=== PATIENT | male | born 1990 | race African-American/Black ===

== ENCOUNTER 2022-11-12 18:08 | Emergency (ER) | payer OTHER ==
[~2022-11-12] VITALS: Ht 170.2 cm; Wt 131.1 kg
[2022-11-12] MEDS ORDERED: LEVETIRACETAM500 MG PO (18:29)
[2022-11-12] MEDS ORDERED: LEVETIRACETAM 500MG/5ML VIAL 1,000 MG in SODIUM CHLORIDE 0.9% 100 ML IV ONE (18:45)
[2022-11-12] MEDS ORDERED: SODIUM CHLORIDE 0.9% 250ML 250 ML ONE (18:51)
[2022-11-12] MEDS ORDERED: LEVETIRACETAM 500 MG/5 ML VIAL IV ONE ×2 (18:51→18:57)
[2022-11-12] MEDS ORDERED: PIPERACILLIN/TAZOBACTAM 3.375 GM VIAL ONE (19:02)
[2022-11-12 19:09] LABS: BASOPHILS % 0.2 % (0.0-1.0); HEMATOCRIT 40.3 % (38.2-49.6); HEMOGLOBIN 13.7 g/dL (14.0-18.0); LYMPHOCYTES # (AUTO) 1.8 (1.0-3.2); LYMPHOCYTES % 6.7 % (18.0-39.1); MEAN CORPUSCULAR HEMOGLOBIN 29.1 pg (28-32); MEAN CORPUSCULAR VOLUME 85.6 fL (81-99); MONOCYTES # (AUTO) 1.1 (0.2-0.8); NEUTROPHILS # (AUTO) 23.1 (2.1-6.9); NEUTROPHILS % 88.4 % (38.7-80.0); PLATELET COUNT 214 x10e3/uL (140-360); RED BLOOD COUNT 4.71 x10e6/uL (4.3-5.7); RED CELL DISTRIBUTION WIDTH 13.9 % (11.7-14.4)
[2022-11-12 19:24] LABS: ALBUMIN 4.1 g/dL (3.5-5.0); ALBUMIN/GLOBULIN RATIO 1.3 (0.8-2.0); ANION GAP 17.2 mmol/L (8-16); CALCIUM 9.7 mg/dL (8.4-10.2); CREATININE, SERUM 1.04 mg/dL (0.72-1.25); POTASSIUM 4.2 mmol/L (3.5-5.1)
[2022-11-12] MEDS ORDERED: IOPAMIDOL 370 MG/ML 100 ML INFUS..BTL INJ ONE (19:47)
[2022-11-12 21:30] VITALS: O2SAT 94
[2022-11-12] MEDS ORDERED: AZITHROMYCIN250 MG PO (21:55)
[2022-11-12] MEDS ORDERED: KEPPRA500 MG PO (21:55)
== END 2022-11-12 22:46 | disposition home or self-care (01) ==
LOC: FSED 18:14
DX: R09.02 Hypoxemia (principal); A41.9 Sepsis, unspecified organism; J18.9 Pneumonia, unspecified organism; R00.0 Tachycardia, unspecified; G40.909 Epilepsy, unspecified, not intractable, without status epilepticus; Z20.822 Contact with and (suspected) exposure to COVID-19; E66.9 Obesity, unspecified; M54.9 Dorsalgia, unspecified; G89.29 Other chronic pain
CPT/HCPCS: 36415; 70450; 71250; 71260; 80053; 81003; 82550; 83605; 83880; 84484; 85025; 85379; 87040; 99284; J1953; J2543; J7050; Q9967; U0002

== ENCOUNTER 2023-09-08 19:08 | Inpatient (IN) | payer OTHER ==
[~2023-09-08] VITALS: Ht 170.2 cm; Wt 131.1 kg
[~2023-09-08 19:08] MED LIST: AZITHROMYCIN250 MG PO; DIAZEPAM INJ 5 MG/ML 2 ML ONE; KEPPRA500 MG PO; LEVETIRACETAM 500 MG/5 ML VIAL IV ONE; LEVETIRACETAM500 MG PO; PIPERACILLIN/TAZOBACTAM 3.375 GM VIAL ONE; SODIUM CHLORIDE 0.9% INJ 100 ML BAG ONE
[2023-09-08] MEDS: DIAZEPAM INJ 5 MG/ML 2 ML IV ONE ×2 (19:35→19:45)
[2023-09-08] MEDS ORDERED: LEVETIRACETAM 500 MG/5 ML VIAL IV ONE ×2 (19:38→22:27)
[2023-09-08] MEDS ORDERED: SODIUM CHLORIDE 0.9% 1000ML 1,000 ML ONE (19:39)
[2023-09-08] MEDS ORDERED: SODIUM CHLORIDE 0.9% 100 ML ONE ×2 (19:39→22:28)
[2023-09-08] MEDS ORDERED: LEVETIRACETAM 500MG/5ML VIAL 500 MG in SODIUM CHLORIDE 0.9% 100 ML IV SCH (19:45)
[2023-09-08] MEDS: LEVETIRACETAM 500MG/5ML VIAL 500 MG in SODIUM CHLORIDE 0.9% 100 ML IV SCH (19:46)
[2023-09-08] MEDS ORDERED: DIAZEPAM INJ 5 MG/ML 2 ML ONE ×2 (19:48→22:36)
[2023-09-08] MEDS ORDERED: KETAMINE HCL INJ 50 MG/ML 10 ML VIAL ONE (19:56)
[2023-09-08] MEDS ORDERED: CEFTRIAXONE 2 GM in SODIUM CHLORIDE 0.9% 100 ML IV ONE (20:00)
[2023-09-08] MEDS: KETAMINE 50MG/5ML SYR IV ONE (20:00)
[2023-09-08 21:06] LABS: BASOPHILS # (AUTO) 0.1 (0.0-0.1); BASOPHILS % 0.2 % (0.0-1.0); EOSINOPHILS % 0.1 % (0.0-6.0); HEMATOCRIT 42.2 % (38.2-49.6); HEMOGLOBIN 14.6 g/dL (14.0-18.0); LYMPHOCYTES # (AUTO) 1.6 (1.0-3.2); LYMPHOCYTES % 5.6 % (18.0-39.1); MEAN CORPUSCULAR HEMOGLOBIN 29.6 pg (28-32); MEAN CORPUSCULAR HGB CONC 34.6 g/dL (31-35); MEAN CORPUSCULAR VOLUME 85.6 fL (81-99); MONOCYTES # (AUTO) 1.9 (0.2-0.8); MONOCYTES % 6.7 % (4.4-11.3); NEUTROPHILS # (AUTO) 24.5 (2.1-6.9); NEUTROPHILS % 86.1 % (38.7-80.0); PLATELET COUNT 149 x10e3/uL (140-360); RED BLOOD COUNT 4.93 x10e6/uL (4.3-5.7); RED CELL DISTRIBUTION WIDTH 14.6 % (11.7-14.4); WHITE BLOOD COUNT 28.46 x10e3/uL (4.8-10.8)
[2023-09-08 21:17] LABS: ALBUMIN 3.7 g/dL (3.5-5.0); ALBUMIN/GLOBULIN RATIO 1.2 (0.8-2.0); ANION GAP 19.4 mmol/L (8-16); BILIRUBIN,TOTAL 0.7 mg/dL (0.2-1.2); CALCIUM 8.9 mg/dL (8.4-10.2); CREATININE, SERUM 1.02 mg/dL (0.72-1.25); TOTAL PROTEIN 6.7 g/dL (6.5-8.1)
[2023-09-08 21:21] LABS: POTASSIUM 3.4 mmol/L (3.5-5.1)
[2023-09-08 21:23] LABS: TROPONIN I 0.071 ng/mL (0-0.300)
[2023-09-08] MEDS: DIAZEPAM INJ 5 MG/ML 2 ML IV STA (21:30)
[2023-09-08] MEDS: LEVETIRACETAM 500MG/5ML VIAL 500 MG in SODIUM CHLORIDE 0.9% 100 ML IV STA (22:27)
[2023-09-08] MEDS ORDERED: PIPERACILLIN/TAZOBACTAM 3.375 GM VIAL ONE (22:27)
[2023-09-08] MEDS: SODIUM CHLORIDE 0.9% 1000ML 1,000 ML IV SCH (22:45)
[2023-09-08] MEDS ORDERED: LORAZEPAM INJ 2 MG/ML VIAL IV PRN (22:45)
[2023-09-08 23:15] VITALS: PULSE 105; RESP 19; O2SAT 99
[2023-09-08] MEDS: KETAMINE HCL INJ 50 MG/ML 10 ML VIAL IV ONE (23:28)
[2023-09-09] VITALS (18 sets, daily range): BP systolic 118–138; BP diastolic 81–100; PULSE 77–104; RESP 16–30; TEMP 98.2–99.4; O2SAT 89–100
[2023-09-09 06:17] LABS: BASOPHILS # (AUTO) 0.1 (0.0-0.1); BASOPHILS % 0.2 % (0.0-1.0); EOSINOPHILS # (AUTO) 0.1 (0.0-0.4); EOSINOPHILS % 0.3 % (0.0-6.0); HEMATOCRIT 38.1 % (38.2-49.6); HEMOGLOBIN 13.2 g/dL (14.0-18.0); LYMPHOCYTES # (AUTO) 2.5 (1.0-3.2); MEAN CORPUSCULAR HEMOGLOBIN 29.6 pg (28-32); MEAN CORPUSCULAR HGB CONC 34.6 g/dL (31-35); MEAN CORPUSCULAR VOLUME 85.4 fL (81-99); MONOCYTES # (AUTO) 1.6 (0.2-0.8); MONOCYTES % 5.9 % (4.4-11.3); NEUTROPHILS # (AUTO) 22.8 (2.1-6.9); NEUTROPHILS % 83.6 % (38.7-80.0); PLATELET COUNT 165 x10e3/uL (140-360); RED BLOOD COUNT 4.46 x10e6/uL (4.3-5.7); RED CELL DISTRIBUTION WIDTH 14.5 % (11.7-14.4); WHITE BLOOD COUNT 27.26 x10e3/uL (4.8-10.8)
[2023-09-09 06:40] LABS: ALBUMIN 3.4 g/dL (3.5-5.0); ALBUMIN/GLOBULIN RATIO 1.2 (0.8-2.0); ANION GAP 13.8 mmol/L (8-16); BILIRUBIN,TOTAL 1.1 mg/dL (0.2-1.2); CREATININE, SERUM 0.86 mg/dL (0.72-1.25); POTASSIUM 3.8 mmol/L (3.5-5.1); TOTAL PROTEIN 6.2 g/dL (6.5-8.1)
[2023-09-09 08:59] LABS: LYMPHOCYTES % (MANUAL) 14 % (19-48); MONOCYTES % (MANUAL) 2 % (3.4-9.0); NEUTROPHILS % (MANUAL) 84 % (40-74)
[2023-09-09 09:00] LABS: PLATELET ESTIMATE ADEQUATE; PLATELET MORPHOLOGY COMMENT NORMAL; RBC MORPHOLOGY COMMENT NORMAL
[2023-09-09] MEDS ORDERED: METOPROLOL TARTRATE INJ 1 MG/ML VIAL IV PRN (11:15)
[2023-09-09] MEDS ORDERED: ACETAMINOPHEN 325 MG TAB PO PRN (11:15)
[2023-09-09] MEDS ORDERED: ONDANSETRON HCL INJ 2MG/ML 2ML 2 MG/ML VIAL IV PRN (11:15)
[2023-09-09] MEDS ORDERED: POLYETHYLENE GLYCOL 3350 17 GM PACK PO PRN (11:15)
[2023-09-09] MEDS ORDERED: Sodium Chloride 0.9% 50ML Bag ONE ×2 (14:25→14:30)
[2023-09-09] MEDS ORDERED: PIPERACILLIN/TAZOBACTAM 3.375 GM VIAL ONE ×3 (14:25→23:21)
[2023-09-09] MEDS ORDERED: SODIUM CHLORIDE 0.9% 1000 ML BAG ONE (14:25)
[2023-09-09] MEDS ORDERED: PIPER-TAZ 3.375 GM / NS 50ML IV ONE (14:30)
[2023-09-09] MEDS: FAMOTIDINE 20 MG TAB PO SCH (16:30)
[2023-09-09] MEDS ORDERED: LEVETIRACETAM 500 MG TAB PO SCH (17:00)
[2023-09-09] MEDS: DOCUSATE SODIUM 100 MG CAP PO SCH (17:00)
[2023-09-09] MEDS: LEVETIRACETAM 500 MG TAB PO SCH (18:14)
[2023-09-10] VITALS: BP 124/84; PULSE 80; RESP 18; TEMP 98.1; O2SAT 99
[2023-09-10] MEDS ORDERED: PIPERACILLIN/TAZOBACTAM 3.375 GM VIAL ONE ×4 (05:02→15:13)
[2023-09-10 06:33] LABS: BASOPHILS % 0.1 % (0.0-1.0); EOSINOPHILS # (AUTO) 0.2 (0.0-0.4); EOSINOPHILS % 1.4 % (0.0-6.0); HEMATOCRIT 37.7 % (38.2-49.6); HEMOGLOBIN 12.6 g/dL (14.0-18.0); LYMPHOCYTES # (AUTO) 2.1 (1.0-3.2); LYMPHOCYTES % 15.7 % (18.0-39.1); MEAN CORPUSCULAR HEMOGLOBIN 28.8 pg (28-32); MEAN CORPUSCULAR HGB CONC 33.4 g/dL (31-35); MEAN CORPUSCULAR VOLUME 86.1 fL (81-99); MONOCYTES # (AUTO) 0.9 (0.2-0.8); MONOCYTES % 6.6 % (4.4-11.3); NEUTROPHILS # (AUTO) 10.3 (2.1-6.9); NEUTROPHILS % 75.5 % (38.7-80.0); PLATELET COUNT 164 x10e3/uL (140-360); RED BLOOD COUNT 4.38 x10e6/uL (4.3-5.7); RED CELL DISTRIBUTION WIDTH 14.4 % (11.7-14.4); WHITE BLOOD COUNT 13.59 x10e3/uL (4.8-10.8)
[2023-09-10 07:17] LABS: ALBUMIN 3.4 g/dL (3.5-5.0); ALBUMIN/GLOBULIN RATIO 1.3 (0.8-2.0); ANION GAP 13.5 mmol/L (8-16); BILIRUBIN,TOTAL 1.5 mg/dL (0.2-1.2); CALCIUM 8.9 mg/dL (8.4-10.2); CREATININE, SERUM 0.87 mg/dL (0.72-1.25); POTASSIUM 3.5 mmol/L (3.5-5.1); TOTAL PROTEIN 6.1 g/dL (6.5-8.1)
[2023-09-10] MEDS ORDERED: DOCUSATE SODIUM 100 MG CAP ONE ×2 (08:14→14:31)
[2023-09-10] MEDS ORDERED: LEVETIRACETAM 500 MG TAB ONE (08:14)
[2023-09-10] MEDS ORDERED: FAMOTIDINE 20 MG TAB ONE ×2 (08:14→14:31)
[2023-09-10 08:17] LABS: CHOL/HDL RATIO 3.7 (3.9-4.7); PHOSPHORUS 3.2 MG/DL (2.3-4.7)
[2023-09-10 09:37] LABS: FREE T4 (FREE THYROXINE) 0.98 ng/dL (0.8-1.8); THYROID STIMULATING HORMONE 0.941 uIU/mL (0.350-4.940)
[2023-09-10 10:15] VITALS: BP 132/94; PULSE 91; RESP 20; TEMP 98.7; O2SAT 99
[2023-09-10 10:20] VITALS: BP 132/94; PULSE 91; RESP 20; TEMP 98.1; O2SAT 99
[2023-09-10] MEDS ORDERED: MAALOX/LIDOCAINE/BENADRYL/NYST 30 ML BTL PO PRN (11:45)
[2023-09-10] MEDS ORDERED: ONDANSETRON HCL 4 MG ORAL DISINTEGRATING TAB PO PRN (11:45)
[2023-09-10] MEDS ORDERED: Sodium Chloride 0.9% 50ML Bag ONE ×2 (12:00→14:31)
[2023-09-10] MEDS ORDERED: POTASSIUM CHLORIDE 20 MEQ TAB CR PO ONE ×3 (12:00→13:06)
[2023-09-10] MEDS ORDERED: ONDANSETRON ODT4 MG PO (12:39)
[2023-09-10] MEDS ORDERED: LEVETIRACETAM500 MG PO (12:45)
[2023-09-10] MEDS ORDERED: KEPPRA500 MG PO (12:45)
[2023-09-10] MEDS: POTASSIUM CHLORIDE 10MEQ EA PO ONE (13:12)
[2023-09-10] MEDS ORDERED: POTASSIUM CHLORIDE 10MEQ EA ONE (13:15)
[2023-09-10] MEDS ORDERED: MAGIC MOUTHWASH PO (13:48)
[2023-09-10] MEDS ORDERED: PIPER-TAZ 3.375 GM / NS 50ML IV ONE (14:31)
[2023-09-10] MEDS ORDERED: LEVETIRACETAM ORAL SOLUTION 500 MG/5 ML SOLN ONE (14:31)
== END 2023-09-10 14:30 | disposition home or self-care (01) | DRG 100 ==
LOC: FSED 19:12 → ERHOLD 22:39 → ICU 09-09 02:16 → MED/SURG 09-09 13:42
PROVIDERS: ADMIT Internal Medicine; ATTEND Internal Medicine
DX: G40.401 Other generalized epilepsy and epileptic syndromes, not intractable, with status epilepticus (principal); G03.9 Meningitis, unspecified; Z68.42 Body mass index [BMI] 45.0-49.9, adult; Z11.52 Encounter for screening for COVID-19; G89.4 Chronic pain syndrome; E66.01 Morbid (severe) obesity due to excess calories; F41.8 Other specified anxiety disorders; F12.90 Cannabis use, unspecified, uncomplicated; F17.290 Nicotine dependence, other tobacco product, uncomplicated; M54.40 Lumbago with sciatica, unspecified side; R09.02 Hypoxemia; R00.0 Tachycardia, unspecified; D72.829 Elevated white blood cell count, unspecified; Z91.148 Patient's other noncompliance with medication regimen for other reason; T42.6X6A Underdosing of other antiepileptic and sedative-hypnotic drugs, initial encounter
CPT/HCPCS: 36415; 70551; 80053; 80061; 80320; 82550; 83036; 83735; 84100; 84439; 84443; 84484; 85025; 94799; 95812; 99284; J0696; J2543; J3360; J7030; J7050; U0002

== ENCOUNTER 2024-11-23 15:11 | Emergency (ER) | payer OTHER ==
[~2024-11-23] VITALS: Ht 167.6 cm; Wt 129.7 kg
[~2024-11-23 15:11] MED LIST changes: -DIAZEPAM INJ 5 MG/ML 2 ML ONE; +KEPPRA750 MG PO; -LEVETIRACETAM 500 MG/5 ML VIAL IV ONE; +MAGIC MOUTHWASH PO; +ONDANSETRON ODT4 MG PO; -PIPERACILLIN/TAZOBACTAM 3.375 GM VIAL ONE; -SODIUM CHLORIDE 0.9% INJ 100 ML BAG ONE
[2024-11-23] MEDS ORDERED: KEPPRA750 MG PO (15:29)
[2024-11-23 15:31] VITALS: PULSE 65; RESP 18; TEMP 98.2; O2SAT 97
[2024-11-30] MEDS ORDERED: CILOXAN3.5 GM OS (17:35)
[2024-11-30] MEDS ORDERED: PERIDEX473 M1 PO (17:40)
== END 2024-11-23 15:55 | disposition home or self-care (01) ==
LOC: FSED 15:19
DX: R56.9 Unspecified convulsions (principal); Z76.0 Encounter for issue of repeat prescription
CPT/HCPCS: 99283